=== PATIENT | female | born 1990 | race Caucasian/White ===

== ENCOUNTER 2025-02-16 10:40 | Outpatient (CLI) | payer BC, SELFPAY ==
--- NOTE | 2025-02-16 | XR_ITS ---
PROCEDURE INFORMATION: Exam: XR Chest Exam date and time: 02/16/2025 11:20 AM Age: 34 years old Clinical indication: Other: Moderate persistent asthma w/o complication TECHNIQUE: Imaging protocol: Radiologic exam of the chest. Views: 2 views. Total images: 2 COMPARISON: No relevant prior studies available. FINDINGS: Lungs: Bilateral hyperinflation is present. Pleural spaces: No pleural effusion. No pneumothorax. Heart/Mediastinum: No cardiomegaly. Bones/joints: The thoracic spine demonstrates mild degenerative changes at multiple levels. IMPRESSION: 1. Bilateral hyperinflation is present. 2. No acute cardiopulmonary abnormalities.
[2025-02-16 11:24] LABS: Hematocrit 40.3 % (37.0-47.0); Hemoglobin 12.6 g/dL (12.2-16.2); Immature Granulocytes % 0.2 %; Mean Corpuscular HGB Conc 31.3 g/dL (31.8-35.4); Mean Corpuscular Hemoglobin 22.5 pg (27.0-31.2); Mean Corpuscular Volume 72.0 fl (81-99); Nucleated Red Blood Cells % 0 %; Platelet Count 261 K/mm3 (142-424); Red Blood Count 5.60 M/mm3 (4.20-5.40); Red Cell Distribution Width-SD 38.8 fL; White Blood Count 8.1 K/mm3 (4.8-10.8)
[2025-02-16 11:38] LABS: Hemoglobin A1C 5.5 % (4.0-6.0)
[2025-02-16 13:14] LABS: Albumin Level 4.2 g/dl (3.5-5.0)
[2025-02-16 13:15] LABS: Chloride 99 mmol/L (98-107); Potassium 4.8 mmoL/L (3.5-5.1); Sodium 135 mmol/L (136-145)
[2025-02-16 13:17] LABS: Alanine Aminotransferase 16 U/L (12-78); Albumin/Globulin Ratio 1.4 (1.1-1.8); Alkaline Phosphatase 68 U/L (38-126); Anion Gap 14.8 mEq/L (5-15); Aspartate Amino Transferase 25 U/L (14-36); Bilirubin,Total 0.2 mg/dl (0.2-1.3); Blood Urea Nitrogen 10 mg/dl (7-17); Carbon Dioxide 26 mmol/L (22.0-30.0); Creatinine,Serum 0.50 mg/dl (0.52-1.04); Estimated Glomerular Filt Rate 140 ml/min (>60); GFR (African American) 169 ML/MIN (>60); Globulin 2.9 g/dL (1.3-3.2); Total Protein,Serum 7.1 g/dl (6.3-8.2)
[2025-02-16 13:18] LABS: Calcium 8.9 mg/dl (8.4-10.2); Cholesterol 139 mg/dl (140-200); Glucose 100 mg/dl (74-100); HDL Cholesterol 58 mg/dl (40-60); Triglycerides 91 mg/dl (30-150)
== END 2025-02-16 23:59 | disposition home or self-care (01) ==
LOC: LAB 10:54
PROVIDERS: PCP Internal Medicine Adolescent Medicine; Visit Provider Internal Medicine Adolescent Medicine
DX: Z00.00 Encounter for general adult medical examination without abnormal findings (principal); J45.40 Moderate persistent asthma, uncomplicated
CPT/HCPCS: 36415; 71046; 80053; 80061; 80074; 83036; 85025

== ENCOUNTER 2025-03-11 07:44 | Outpatient (CLI) | payer BC, SELFPAY ==
[2025-03-11] MEDS: ALBUTEROL 0.083% 2.5 MG/3 ML NEB IH (08:44)
--- NOTE | 2025-03-11 08:45 | PC.NURSE ---
PFT completed without incident. Albuterol 0.083% given via [facility]N, per written protocol, Pt tolerated tx well.
== END 2025-03-11 23:59 | disposition home or self-care (01) ==
LOC: RT 07:45
PROVIDERS: PCP Internal Medicine Adolescent Medicine; Visit Provider Internal Medicine Adolescent Medicine
DX: J45.40 Moderate persistent asthma, uncomplicated (principal); R94.2 Abnormal results of pulmonary function studies
CPT/HCPCS: 94010; 94727; 94729